=== PATIENT | female | born 1960 | race Caucasian/White ===

== ENCOUNTER 2018-03-24 21:38 | Emergency (ER) | payer OTHER ==
--- NOTE | 2018-03-24 22:20 | EDM.PDOC ---
ED HPI GENERAL MEDICAL PROBLEM - General Chief Complaint: Head Injury Stated Complaint: HIT IN THE HEAD LAST NIGHT WITH HAMMER Time Seen by Provider: 03/24/18 22:24 Source of Information: Reports: Patient History Limitations: Reports: No Limitations - History of Present Illness INITIAL COMMENTS - FREE TEXT/NARRATIVE: pt was helping her put a wood floor down last nite and the hammer came back and hit her on the left side of his head. She was not knocked out She was very upset . She now has visual blurring She has not had any vomiting. Onset: Today, Other ( started last nite. ) Duration: Hour(s): Location: Reports: Head Associated Symptoms: Reports: Headaches Left Headache Pain Score (Numeric/FACES): 5 - Related Data Allergies Allergy/AdvReac Type Severity Reaction Status Date / Time No Known Allergies Allergy Verified 03/24/18 22:05 Home Meds: Home Meds NK [No Known Home Meds] 03/24/18 [History] Past Medical History HEENT History: Reports: Other (See Below) Other HEENT History: eye lid repair [employer] History: Reports: - Infectious Disease History Infectious Disease History: Reports: Chicken Pox - Past Surgical History GI Surgical History: Reports: Hernia Repair/Other Social & Family History - Tobacco Use Smoking Status *Q: Never Smoker - Caffeine Use Caffeine Use: Reports: None - Alcohol Use Days Per Week of Alcohol Use: 1 Number of Drinks Per Day: 1 Total Drinks Per Week: 1 - Recreational Drug Use Recreational Drug Use: No ED ROS GENERAL - Review of Systems Review Of Systems: See Below Constitutional: Reports: No Symptoms HEENT: Reports: Vision Change Respiratory: Reports: No Symptoms Cardiovascular: Reports: No Symptoms Endocrine: Reports: No Symptoms GI/Abdominal: Reports: No Symptoms : Reports: No Symptoms Musculoskeletal: Reports: No Symptoms Skin: Reports: No Symptoms Neurological: Reports: Headache, Other ( visual blurring) Psychiatric: Reports: No Symptoms Hematologic/Lymphatic: Reports: No Symptoms ED EXAM, HEAD INJURY - Physical Exam Exam: See Below Text/Narrative:: pt has some bruising and swelling above her left ee. She has bruising in the left eye lid. She states that she has slight blurring of her vision on the left. She has not had vomiting. Exam Limited By: No Limitations General Appearance: Alert, Anxious, Mild Distress Head: Other ( bruise above the left eye and some bruising in the left upper lid. ) Ears: Normal TMs Nose: Normal Inspection Throat/Mouth: Normal Inspection Neck: Non-Tender Respiratory: No Respiratory Distress Cardiovascular: Regular Rate, Rhythm GI/Abdominal Exam: Soft, Non-Tender (Female) Exam: Deferred Rectal (Female) Exam: Deferred Back Exam: Normal Inspection Extremities: Normal Inspection Neurologic: Alert, Oriented x 3 Course - Vital Signs Last Recorded V/S: Last Vital Signs Temp 35.8 C 03/24/18 21:59 Pulse 74 03/24/18 21:59 Resp 16 03/24/18 21:59 BP 122/47 L 03/24/18 21:59 Pulse Ox 97 03/24/18 21:59 - Orders/Labs/Meds Orders: Active Orders 24 hr Category Date Time Status Head wo Cont [CT] Stat Exams 03/24/18 22:22 Taken - Re-Assessments/Exams Free Text/Narrative Re-Assessment/Exam: 03/24/18 23:39 cat scan of the head was neg. Departure - Departure Time of Disposition: 23:38 Disposition: Home, Self-Care 01 Condition: Fair Clinical Impression: Contusion of forehead - Discharge Information Referrals: PCP,None [Primary Care Provider] - Forms: ED Department Discharge Care Plan Goals: rtc if any further symptoms. cat scan was neg. - My Orders Last 24 Hours: My Active Orders 03/24/18 22:22 Head wo Cont [CT] Stat - Assessment/Plan Last 24 Hours: My Active Orders 03/24/18 22:22 Head wo Cont [CT] Stat
== END 2018-03-24 23:51 | disposition home or self-care (01) ==
LOC: JP.ED 21:38
DX: S00.83XA Contusion of other part of head, initial encounter (principal); S00.12XA Contusion of left eyelid and periocular area, initial encounter; W20.8XXA Other cause of strike by thrown, projected or falling object, initial encounter
CPT/HCPCS: 70450; 99284-25